=== PATIENT | female | born 1960 | race Caucasian/White ===

== ENCOUNTER 2018-10-25 11:46 | Inpatient (IN) | payer OTHER ==
[~2018-10-25] VITALS: Ht 157.5 cm; Wt 81.6 kg
[2018-10-25] MEDS ORDERED: MORPHINE SULFATE 4 MG/1 ML DISP.SYRIN IV ONE (12:15)
[2018-10-25] MEDS ORDERED: ONDANSETRON 4 MG/2 ML VIAL IV ONE (12:15)
[2018-10-25] MEDS ORDERED: ONDANSETRON 4 MG/2 ML VIAL ONE (12:19)
[2018-10-25] MEDS ORDERED: MORPHINE SULFATE 4 MG/1 ML DISP.SYRIN ONE (12:19)
[2018-10-25 12:34] LABS: CREATININE 0.6 mg/dL (0.6-1.3); POTASSIUM 4.2 mmol/L (3.5-5.1)
[2018-10-25 12:35] LABS: AMYLASE 41 U/L (25-115); LIPASE 162 U/L (73-393)
[2018-10-25 12:40] LABS: BILIRUBIN,DIRECT 0.1 mg/dL (0.0-0.2); BILIRUBIN,TOTAL 0.4 mg/dL (0.2-1.0); TOTAL PROTEIN, SERUM 7.2 g/dL (6.4-8.2)
[2018-10-25 12:41] LABS: BASOPHILS % (AUTO) 0.5 % (0.0-2.0); EOSINOPHILS # (AUTO) 0.1 K/uL (0.0-0.7); EOSINOPHILS % (AUTO) 2.3 % (0.0-7.0); HEMATOCRIT 38.4 % (31.2-41.9); HEMOGLOBIN 12.9 g/dL (10.9-14.3); LYMPHOCYTES # (AUTO) 2.2 K/uL (20.0-40.0); LYMPHOCYTES % (AUTO) 37.1 % (20.5-51.5); MEAN CORPUSCULAR HEMOGLOBIN 28.7 uug (24.7-32.8); MEAN CORPUSCULAR HGB CONC 34 g/dL (32.3-35.6); MEAN CORPUSCULAR VOLUME 85.6 fL (75.5-95.3); MONOCYTES # (AUTO) 0.4 K/uL (2.0-10.0); MONOCYTES % (AUTO) 7.1 % (0.0-11.0); NEUTROPHILS # (AUTO) 3.2 K/uL (1.8-8.9); PLATELET COUNT (AUTO) 186 K/uL (179-408); RED BLOOD CELL COUNT(AUTO) 4.49 MIL/uL (3.63-4.92)
[2018-10-25 13:58] LABS: *BILIRUBIN,URIN NEGATIVE (NEGATIVE); *BLOOD, URINE NEGATIVE (NEGATIVE); *CLARITY,URINE CLOUDY (CLEAR); *COLOR,URINE YELLOW (YELLOW); *KETONES,URINE NEGATIVE (NEGATIVE); *PROTEIN,URINE NEGATIVE (NEGATIVE); *UROBILINOGEN,URINE 0.2 E.U./dl (NORMAL); LEUKOCYTE ESTERASE ,URINE 2+ (NEGATIVE); NITRITE, URINE NEGATIVE (NEGATIVE); PH,URINE 5.5 (5.0-8.0); UGLUCOSE NEGATIVE (NEGATIVE)
[2018-10-25 14:03] LABS: BACTERIA,URINE MANY /HPF (NONE SEEN); SQUAMOUS EPITHELIAL CELL,UR MODERATE /HPF (NONE SEEN)
[2018-10-25 14:04] LABS: MUCUS,URINE FEW /LPF (0-FEW)
[2018-10-25] MEDS ORDERED: HYDROMORPHONE 1 MG/1 ML DISP.SYRIN IV ONE (14:15)
[2018-10-25] MEDS ORDERED: HYDROMORPHONE 1 MG/1 ML DISP.SYRIN ONE (14:21)
[2018-10-25] MEDS ORDERED: CEFTRIAXONE 2 G in IV DEXTROSE 5% 100 ML IV ONE (15:30)
[2018-10-25] MEDS ORDERED: CEFTRIAXONE 1 G VIAL ONE (15:35)
[2018-10-25] MEDS ORDERED: HYDROCODONE/APAP 5-325MG TABLET PO PRN (16:15)
[2018-10-25] MEDS ORDERED: MAGNESIUM HYDROXIDE 30 ML LIQUID UDC PO PRN (16:15)
[2018-10-25] MEDS ORDERED: MORPHINE SULFATE 2 MG/1 ML DISP.SYRIN IV PRN (16:15)
[2018-10-25] MEDS ORDERED: Z GUARD REMEDY PASTE 57 GM TUBE TOP PRN (16:15)
[2018-10-25] MEDS: ONDANSETRON 4 MG/2 ML VIAL IV PRN ×2 (17:35→23:25)
[2018-10-25 20:05] VITALS: BP 101/69
[2018-10-25] MEDS: MORPHINE SULFATE 4 MG/1 ML DISP.SYRIN IV PRN (23:25)
[2018-10-26] MEDS: MORPHINE SULFATE 4 MG/1 ML DISP.SYRIN IV PRN (03:43)
[2018-10-26 04:51] VITALS: BP 109/61
[2018-10-26] MEDS: ONDANSETRON 4 MG/2 ML VIAL IV PRN (05:55)
[2018-10-26 07:16] LABS: CREATININE 0.6 mg/dL (0.6-1.3); MAGNESIUM 1.9 mg/dL (1.8-2.4); PHOSPHOROUS 4.4 mg/dL (2.5-4.9); POTASSIUM 4.2 mmol/L (3.5-5.1)
[2018-10-26 07:43] LABS: BASOPHILS % (AUTO) 0.4 % (0.0-2.0); EOSINOPHILS # (AUTO) 0.1 K/uL (0.0-0.7); EOSINOPHILS % (AUTO) 2.1 % (0.0-7.0); HEMATOCRIT 38.3 % (31.2-41.9); HEMOGLOBIN 12.7 g/dL (10.9-14.3); LYMPHOCYTES # (AUTO) 2.4 K/uL (20.0-40.0); LYMPHOCYTES % (AUTO) 37.3 % (20.5-51.5); MEAN CORPUSCULAR HEMOGLOBIN 28.5 uug (24.7-32.8); MEAN CORPUSCULAR HGB CONC 33 g/dL (32.3-35.6); MONOCYTES # (AUTO) 0.4 K/uL (2.0-10.0); MONOCYTES % (AUTO) 6.8 % (0.0-11.0); NEUTROPHILS # (AUTO) 3.5 K/uL (1.8-8.9); NEUTROPHILS % (AUTO) 53.4 % (38.5-71.5); PLATELET COUNT (AUTO) 211 K/uL (179-408); RED BLOOD CELL COUNT(AUTO) 4.45 MIL/uL (3.63-4.92); WHITE BLOOD COUNT (AUTO) 6.5 K/uL (3.8-11.8)
[2018-10-26] MEDS: ACETAMINOPHEN 325 MG TABLET PO PRN ×3 (09:16→23:47)
[2018-10-26 11:58] VITALS: BP_SYST 124; BP_SYST 133; BP_DIAS 76; BP_DIAS 78
[2018-10-26] MEDS ORDERED: CEFTRIAXONE 1 G in IV DEXTROSE 5% 50 ML IV SCH (16:00)
[2018-10-26 16:13] VITALS: BP 110/69
[2018-10-26 19:00] VITALS: BP 111/58
[2018-10-27 01:05] VITALS: BP 124/79
[2018-10-27 04:30] VITALS: BP 107/57
[2018-10-27] MEDS ORDERED: PANTOPRAZOLE SODIUM 40 MG TABLET.DR PO SCH (07:00)
[2018-10-27] MEDS ORDERED: FENTANYL CITRATE 100 MCG/2 ML AMPUL ONE (07:06)
[2018-10-27 07:09] LABS: BASOPHILS % (AUTO) 0.4 % (0.0-2.0); EOSINOPHILS # (AUTO) 0.2 K/uL (0.0-0.7); EOSINOPHILS % (AUTO) 3.1 % (0.0-7.0); HEMATOCRIT 38.8 % (31.2-41.9); HEMOGLOBIN 12.9 g/dL (10.9-14.3); LYMPHOCYTES # (AUTO) 2.3 K/uL (20.0-40.0); LYMPHOCYTES % (AUTO) 43.2 % (20.5-51.5); MEAN CORPUSCULAR HEMOGLOBIN 28.6 uug (24.7-32.8); MEAN CORPUSCULAR HGB CONC 33 g/dL (32.3-35.6); MEAN CORPUSCULAR VOLUME 85.8 fL (75.5-95.3); MONOCYTES # (AUTO) 0.4 K/uL (2.0-10.0); MONOCYTES % (AUTO) 7.7 % (0.0-11.0); NEUTROPHILS # (AUTO) 2.5 K/uL (1.8-8.9); NEUTROPHILS % (AUTO) 45.6 % (38.5-71.5); PLATELET COUNT (AUTO) 192 K/uL (179-408); RED BLOOD CELL COUNT(AUTO) 4.52 MIL/uL (3.63-4.92); WHITE BLOOD COUNT (AUTO) 5.4 K/uL (3.8-11.8)
[2018-10-27 07:48] LABS: CREATININE 0.6 mg/dL (0.6-1.3); POTASSIUM 3.8 mmol/L (3.5-5.1)
[2018-10-27] MEDS ORDERED: TRIAMCINOLONE ACETONIDE 40 MG/1 ML VIAL ONE (08:40)
[2018-10-27] MEDS ORDERED: BUPIVACAINE 0.25% 30 ML VIAL ONE (08:47)
[2018-10-27] MEDS ORDERED: LIDOCAINE 1%-EPI 1:100,000 20 ML VIAL ONE (08:47)
[2018-10-27 09:35] VITALS: BP 132/69
[2018-10-27 11:05] VITALS: BP 118/48
[2018-10-27 12:35] VITALS: BP 106/66
[2018-10-27] MEDS ORDERED: LIPASE/PROTEASE/AMYLASE 4200 UNITS CAPSULE.DR PO PRN ×2 (12:45→13:45)
[2018-10-27] MEDS: LIPASE/PROTEASE/AMYLASE 4200 UNITS CAPSULE.DR PO SCH ×2 (13:00→14:20)
[2018-10-27] MEDS ORDERED: LIPA1CAP27 PO ×2 (13:16)
[2018-10-27] MEDS ORDERED: SIMETHICONE 40 MG/0.6 ML 30 ML BOTTLE MC ONE (14:59)
[2018-10-27] MEDS ORDERED: PROPOFOL 200 MG/20 ML BOTTLE IV ONE (14:59)
[2018-10-27] MEDS ORDERED: IV LACTATED RINGERS SOLUTION 1,000 ML BAG IV ONE (14:59)
[2018-10-28 05:05] LABS: HEPATITIS A AB, IgM Negative (Negative); HEPATITIS B SURFACE AB Non Reactive (.); HEPATITIS B SURFACE AG Negative (Negative)
== END 2018-10-27 15:00 | disposition home or self-care (01) | DRG 445 ==
LOC: ER 11:48 → MED 16:22
PROVIDERS: ADMIT Family Medicine; ATTEND Family Medicine
PROC: 0DB98ZX Excision of Duodenum, Via Natural or Artificial Opening Endoscopic, Diagnostic (ICD-10-PCS; principal; 2018-10-27 08:01)
PROC: 0DB78ZX Excision of Stomach, Pylorus, Via Natural or Artificial Opening Endoscopic, Diagnostic (ICD-10-PCS; principal; 2018-10-27 08:01)
DX: K80.20 Calculus of gallbladder without cholecystitis without obstruction (principal); N39.0 Urinary tract infection, site not specified; E44.1 Mild protein-calorie malnutrition; E88.09 Other disorders of plasma-protein metabolism, not elsewhere classified; K27.9 Peptic ulcer, site unspecified, unspecified as acute or chronic, without hemorrhage or perforation; K21.0 Gastro-esophageal reflux disease with esophagitis; E66.9 Obesity, unspecified; Z68.33 Body mass index [BMI] 33.0-33.9, adult; Z88.0 Allergy status to penicillin; K76.0 Fatty (change of) liver, not elsewhere classified; K44.9 Diaphragmatic hernia without obstruction or gangrene; R73.9 Hyperglycemia, unspecified; R94.5 Abnormal results of liver function studies; K57.30 Diverticulosis of large intestine without perforation or abscess without bleeding; R07.89 Other chest pain
CPT/HCPCS: 36415; 70030-TC; 71045; 78445; 83690; 83735; 84100; 85025; 86705; 86706; 86709; 86803; 87077; 87086; 87340; 88342; 93005; A4217; A4663; A9537; G0378; J0696; J1170; J2270; J2405; J3010; J3301; J3490; J7060; J7120